=== PATIENT | male | born 1985 | race Caucasian/White ===

== ENCOUNTER 2024-05-15 09:15 | Outpatient (RCR) | payer BC, SELFPAY ==
[2024-05-15 11:28] VITALS: BMI 23.3
--- NOTE | 2024-05-15 12:55 | HO.IOP ---
Addendum entered by Rachel Tripp [facility] 05/15/24 16:04: Error: no accreditation ([employer]) Original Note: Patient was notified that his insurance was not accepted due to accreditation ([employer]) and was provided with the [facility] contact information to request services with them.
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
== END 2024-05-15 23:59 | disposition home or self-care (01) ==
LOC: HO.PHPA 09:15
PROVIDERS: Visit Provider Psychiatry & Neurology Psychiatry
DX: F33.2 Major depressive disorder, recurrent severe without psychotic features (principal); F90.9 Attention-deficit hyperactivity disorder, unspecified type; F42.9 Obsessive-compulsive disorder, unspecified; F43.10 Post-traumatic stress disorder, unspecified; F41.1 Generalized anxiety disorder
CPT/HCPCS: 90791; 90853